=== PATIENT | male | born 1990 | race Caucasian/White ===

== ENCOUNTER 2021-03-12 10:56 | Emergency (ER) | payer MEDICAID, SELFPAY ==
[~2021-03-12] VITALS: Ht 167.6 cm; Wt 145.1 kg
[2021-03-12 11:17] VITALS: BP_SYST 138
--- NOTE | 2021-03-12 11:35 | NUR ---
Dr Mcmahon evaluating patient in the triage room
--- NOTE | 2021-03-12 11:59 | NUR ---
Patient to ER bed 08 to gown for evaluation. Side rails up.
--- NOTE | 2021-03-12 12:14 | NUR ---
First contact with patient. Awake, alert and oriented x 3. UA sent. Patient stated he was taken to ultrasound already. Awaiting IV/lab work.
--- NOTE | 2021-03-12 12:30 | NUR ---
# 20 gauge angiocath placed to L AC. Use of asceptic technique. Opsite placed over site. Blood return noted. Blood for lab drawn from site. Flushed with 10 cc of normal saline. No evidence of infiltration noted. Patient tolerated well.
[2021-03-12 13:22] LABS: CALCIUM 8.4 mg/dL (8.4-11.0); CREATININE 0.57 mg/dL (0.55-1.30); POTASSIUM 3.9 mmol/L (3.5-5.1)
[2021-03-12 13:23] LABS: BASOPHILS # (AUTO) 0.1 K/uL (0.0-0.2); BASOPHILS % (AUTO) 1.1 % (0.0-2.0); EOSINOPHILS # (AUTO) 0.1 K/uL (0.0-0.4); EOSINOPHILS % (AUTO) 1.8 % (0.0-4.0); HEMATOCRIT 44.3 % (36-54); HEMOGLOBIN 14.9 g/dL (14.0-18.0); LYMPHOCYTES # (AUTO) 2.4 K/uL (1.0-5.5); LYMPHOCYTES % (AUTO) 30.3 % (20.5-51.5); MEAN CORPUSCULAR HEMOGLOBIN 29 pg (27-31); MEAN CORPUSCULAR HGB CONC 34 % (32-36); MEAN CORPUSCULAR VOLUME 87 fL (79.0-98.0); MONOCYTES # (AUTO) 0.6 K/uL (0.0-1.0); MONOCYTES % (AUTO) 7.1 % (1.7-9.3); NEUTROPHILS # (AUTO) 4.8 K/uL (1.8-7.7); NEUTROPHILS % (AUTO) 59.7 % (40.0-70.0); PLATELET COUNT (AUTO) 287 K/uL (130-430); RED BLOOD CELL COUNT(AUTO) 5.08 MIL/uL (4.2-6.2); RED CELL DISTRIBUTION WIDTH 13.2 % (9.0-15.0); WHITE BLOOD COUNT (AUTO) 8.1 K/uL (4.8-10.8)
[2021-03-12 13:24] LABS: BILIRUBIN,URINE NEGATIVE (NEGATIVE); BLOOD, URINE NEGATIVE (NEGATIVE); CLARITY/URINE CLEAR (CLEAR); COLOR,URINE YELLOW (YELLOW); GLUCOSE,URINE TRACE (NEGATIVE); KETONES,URINE NEGATIVE (NEGATIVE); LEUKOCYTE ESTERASE ,URINE NEGATIVE (NEGATIVE); NITRITE, URINE NEGATIVE (NEGATIVE); PH,URINE 5.5 (5.0-8.0); PROTEIN URINE 1+ (NEGATIVE); UROBILINOGEN,URINE 0.2 (0.2-1.0)
[2021-03-12 13:28] LABS: ALBUMIN 3.2 g/dL (3.4-4.8); TOTAL BILIRUBIN 0.2 mg/dL (0.0-1.0)
[2021-03-12] MEDS ORDERED: OMEP1CAP32 PO (13:38)
[2021-03-12] MEDS ORDERED: METF-834 PO (13:38)
[2021-03-12] MEDS ORDERED: HYDR-3917 PO (13:38)
--- NOTE | 2021-03-12 13:45 | NUR ---
Patient given written and verbal discharge instructions and verbalizes understanding. ER MD discussed with patient the results and treatment provided. Patient in stable condition. ID arm band removed. IV catheter removed intact and dressing applied, no active bleeding. Rx of Metformin, [place] and Omeprazole given. Patient educated on pain management and to follow up with PMD. Pain scale 0/10. Opportunity for questions provided and answered. Medication side effect fact sheet provided.
[2021-03-12 13:51] VITALS: BP_SYST 138
[2021-03-12 14:12] LABS: BACTERIA,URINE FEW /HPF (None Seen); HYALINE CASTS, URINE 0-10 /LPF (None Seen); RBC,URINE 0-3 /HPF (0-3); WBC,URINE 0-3 /HPF (0-3)
== END 2021-03-12 13:45 | disposition home or self-care (01) ==
LOC: SED 10:56
DX: R10.13 Epigastric pain (principal); I10 Essential (primary) hypertension
CPT/HCPCS: 36415; 76700-TC; 80053; 81000; 82150; 82962; 83605; 83690; 85025; 99284

== ENCOUNTER 2021-04-14 08:36 | Emergency (ER) | payer MEDICAID, SELFPAY ==
[~2021-04-14] VITALS: Ht 180.3 cm; Wt 147.4 kg
[~2021-04-14 08:36] MED LIST: HYDR-3917 PO; METF-834 PO; OMEP1CAP32 PO
[2021-04-14 09:00] VITALS: BP_SYST 150
[2021-04-14] MEDS ORDERED: DIPH-TET-PERTUS Vaccine 0.5 ML VIAL (ADACEL) I.M. ONE (10:15)
[2021-04-14 11:10] VITALS: BP_SYST 132
== END 2021-04-14 11:10 | disposition home or self-care (01) ==
LOC: SED 08:36
DX: F41.0 Panic disorder [episodic paroxysmal anxiety] (principal); I10 Essential (primary) hypertension; Z79.899 Other long term (current) drug therapy
CPT/HCPCS: 82962; 90715; 93005; 96372; 99283; 99285

== ENCOUNTER 2021-11-13 09:25 | Emergency (ER) | payer MEDICAID ==
[~2021-11-13] VITALS: Ht 180.3 cm; Wt 145.1 kg
[2021-11-13 09:25] VITALS: BP_SYST 163
--- NOTE | 2021-11-13 09:30 | NUR ---
BROUGHT BACK TO BED #6 AND TRIAGED. REPORT GIVEN TO TERRY
--- NOTE | 2021-11-13 09:34 | NUR ---
RECEIVED PT FROM DORIS CORNEJO. PT HAS C/O R LEG PAIN X1 WK. PT IS AAOX4, NORMAL S1S2, RESP E/U, ON R/A. DENIES N/V/D/C. DISTAL PULSES NORMAL, NO EDEMA, CAP REFILL <3 SECS. SKIN WARM, CDI. SIDERAILS UP X2.
[2021-11-13] MEDS ORDERED: KETOROLAC TROMETHAMINE 60 MG/2 ML VIAL IM ONE (10:00)
--- NOTE | 2021-11-13 10:00 | NUR ---
DR. SALOMON AT BEDSIDE TO ASSESS PT.
--- NOTE | 2021-11-13 10:24 | NUR ---
PT TAKEN FOR XRAY AT THIS TIME.
[2021-11-13] MEDS ORDERED: SOM350 PO (11:43)
[2021-11-13] MEDS ORDERED: IBUP-1971 PO (11:43)
[2021-11-13 15:34] VITALS: BP_SYST 142
--- NOTE | 2021-11-13 15:38 | NUR ---
Patient given written and verbal discharge instructions and verbalizes understanding. ER MD discussed with patient the results and treatment provided. Patient in stable condition. ID arm band removed. IV catheter removed intact and dressing applied, no active bleeding. Rx of IBUPROPHEN AND SOMA given. Patient educated on pain management and to follow up with PMD. Pain Scale 0/10. Opportunity for questions provided and answered. Medication side effect fact sheet provided.
== END 2021-11-13 15:38 | disposition home or self-care (01) ==
LOC: SED 09:25
DX: M54.31 Sciatica, right side (principal); M54.50 Low back pain, unspecified; M79.604 Pain in right leg; I10 Essential (primary) hypertension; Z79.899 Other long term (current) drug therapy
CPT/HCPCS: 99283; 72100; 96372; J1885

== ENCOUNTER 2022-01-25 23:57 | Emergency (ER) | payer MEDICAID ==
[~2022-01-25] VITALS: Ht 180.3 cm; Wt 147.4 kg
[~2022-01-25 23:57] MED LIST changes: +IBUP-1971 PO; +SOM350 PO
[2022-01-26] VITALS: BP_SYST 168
--- NOTE | 2022-01-26 00:05 | NUR ---
Received Pt AAOx4, skin w/d to touch w/ c/o SOB that started 2 days ago. Has a Hx of Asthma (last episode > 5 yrs ago), has no rescue inhaler, other recent Hx HTN, DM (has no insurance, to buy PO metformin). Pending MD assessment.
[2022-01-26 00:51] LABS: HEMOGLOBIN 15.9 g/dL (14.0-18.0); MEAN CORPUSCULAR HGB CONC 35 % (32-36)
[2022-01-26 00:56] LABS: BASOPHILS # (AUTO) 0.1 K/uL (0.0-0.2); BASOPHILS % (AUTO) 1.1 % (0.0-2.0); EOSINOPHILS # (AUTO) 0.1 K/uL (0.0-0.4); EOSINOPHILS % (AUTO) 1.4 % (0.0-4.0); HEMATOCRIT 45.3 % (36-54); LYMPHOCYTES # (AUTO) 2.9 K/uL (1.0-5.5); LYMPHOCYTES % (AUTO) 27.7 % (20.5-51.5); MEAN CORPUSCULAR HEMOGLOBIN 31 pg (27-31); MEAN CORPUSCULAR VOLUME 87 fL (79.0-98.0); MONOCYTES # (AUTO) 0.7 K/uL (0.0-1.0); MONOCYTES % (AUTO) 6.3 % (1.7-9.3); NEUTROPHILS # (AUTO) 6.7 K/uL (1.8-7.7); NEUTROPHILS % (AUTO) 63.5 % (40.0-70.0); PLATELET COUNT (AUTO) 287 K/uL (130-430); RED CELL DISTRIBUTION WIDTH 12.9 % (9.0-15.0); WHITE BLOOD COUNT (AUTO) 10.5 K/uL (4.8-10.8)
[2022-01-26 00:59] LABS: ANION GAP 11 (5-15); CALCIUM 9.1 mg/dL (8.4-11.0); CHLORIDE 100 mmol/L (98-107); CREATININE 0.96 mg/dL (0.55-1.30); GLUCOSE 322 mg/dL (70-99); UREA NITROGEN, BLOOD 12 mg/dL (8-21)
--- NOTE | 2022-01-26 01:00 | NUR ---
Seen by HARRIET BROCK
[2022-01-26 01:08] LABS: ALANINE AMINOTRANSFERASE 96 U/L (12-78); ALBUMIN 3.5 g/dL (3.4-4.8); ASPARTATE AMINOTRANSFERASE 61 U/L (10-37); TOTAL BILIRUBIN 0.3 mg/dL (0.0-1.0)
[2022-01-26 01:10] LABS: GFR AFRICAN AMERICAN 117 mL/min (>90)
[2022-01-26] MEDS ORDERED: NACL 0.9% 2,000 ML IV ONE (02:15)
[2022-01-26] MEDS ORDERED: metFORMIN HCL 500 MG TABLET PO ONE (03:00)
[2022-01-26] MEDS ORDERED: MAG HYDROX/AL HYDROX/SIMETH 30 ML, LIDOCAINE VISCOUS 2% 15ML (PO) 15 ML, DICYCLOMINE HC... PO ONE ×3 (03:15)
--- NOTE | 2022-01-26 03:50 | NUR ---
Pt in bed 2 lying on gurney, calm, voices no c/o malaise, pain or discomfort. Pending final disposition.
[2022-01-26] MEDS ORDERED: METF-1069 PO (05:04)
[2022-01-26] MEDS ORDERED: PRO40 PO (05:04)
[2022-01-26 05:30] VITALS: BP_SYST 146
--- NOTE | 2022-01-26 05:30 | NUR ---
Patient given written and verbal discharge instructions and verbalizes understanding. ER MD discussed with patient the results and treatment provided. Patient in stable condition. ID arm band removed. Rx of metformin, and protonix given. Patient educated on pain management and to follow up with PMD. Pain Scale. Opportunity for questions provided and answered.
== END 2022-01-26 05:30 | disposition home or self-care (01) ==
LOC: SED 23:57
DX: F41.9 Anxiety disorder, unspecified (principal); K21.9 Gastro-esophageal reflux disease without esophagitis; E11.9 Type 2 diabetes mellitus without complications; I10 Essential (primary) hypertension; Z91.14 Patient's other noncompliance with medication regimen; Z79.899 Other long term (current) drug therapy
CPT/HCPCS: 36415; 71045; 80053; 82962; 83880; 84484; 85025; 85379; 93005; 99285